=== PATIENT | male | born 1940 | race Caucasian/White ===

== ENCOUNTER → 2018-02-03 | Outpatient (CLI) | payer OTHER | LOC: BRMIMAGING 11:37 | PROVIDERS: ATTEND Internal Medicine | DX: R39.198 Other difficulties with micturition (principal) | CPT/HCPCS: 76770-PO ==

== ENCOUNTER → 2018-03-17 | Outpatient (CLI) | payer OTHER | LOC: BRMIMAGING 10:57 | PROVIDERS: ATTEND Internal Medicine | DX: I77.9 Disorder of arteries and arterioles, unspecified (principal) | CPT/HCPCS: 93880-PO ==